=== PATIENT | male | born 1950 | race Caucasian/White ===

== ENCOUNTER 2017-10-20 02:38 | Inpatient (IN) | payer OTHER ==
[~2017-10-20] VITALS: Ht 185.4 cm; Wt 74.3 kg
[2017-10-20] MEDS ORDERED: ZIPRASIDONE 20 MG INJ IM ONE ×2 (03:16→03:30)
[2017-10-20 03:29] LABS: BASOPHILS # (AUTO) 0.06 x10^3/uL (0-0.1); BASOPHILS % (AUTO) 1 % (0-1); EOSINOPHILS # (AUTO) 0.09 x10^3/uL (0-0.4); EOSINOPHILS % (AUTO) 1 % (1-7); LYMPHOCYTES % (AUTO) 19 % (22-44); MD NO; MEAN CORPUSCULAR HEMOGLOBIN 30.4 pg (27.5-34.5); MEAN CORPUSCULAR HGB CONC 33.8 g/dL (33.2-36.2); MEAN CORPUSCULAR VOLUME 90.1 fL (81-97); MEAN PLATELET VOLUME 7.8 fL (7.4-10.4); MONOCYTES # (AUTO) 0.96 x10^3/uL (0.2-0.8); MONOCYTES % (AUTO) 8 % (2-9); NEUTROPHILS # (AUTO) 8.65 x10^3/uL (1.8-6.8); NEUTROPHILS % (AUTO) 72 % (42-75); PLATELET COUNT 404 x10^3/uL (130-400); RED BLOOD COUNT 4.49 x10^6/uL (4.38-5.82)
[2017-10-20 03:31] LABS: ALANINE AMINOTRANSFERASE 38 U/L (12-78); ALBUMIN 4.4 g/dL (3.4-5.0); ANION GAP 8 mmol/L (5-15); CALCIUM 9.3 mg/dL (8.5-10.1); CHLORIDE 108 mmol/L (98-107); CREATININE 1.12 mg/dL (0.7-1.3)
[2017-10-20 03:33] LABS: SALICYLATE LEVEL < 1.7 mg/dL (2.8-20.0)
[2017-10-20 03:36] LABS: ALKALINE PHOSPHATASE 76 U/L (45-117); TOTAL PROTEIN 8.8 g/dL (6.4-8.2); TROPONIN I 0.119 ng/mL (0.000-0.045)
[2017-10-20 03:38] LABS: ACETAMINOPHEN < 2 mcg/mL (10-30)
[2017-10-20] MEDS ORDERED: ASPIRIN 81 MG TABLET CHEW ONE (03:50)
[2017-10-20] MEDS ORDERED: ASPIRIN 81 MG TABLET CHEW PO ONE (04:00)
[2017-10-20 08:14] VITALS: BP 157/113
[2017-10-20 08:17] VITALS: BP 175/100
[2017-10-20] MEDS ORDERED: NITROGLYCERIN 0.4 MG BOTTLE (25 TABS) SL PRN (12:30)
[2017-10-20] MEDS ORDERED: morphine SULFATE 10 MG/ML, 1ML IVPush PRN (12:30)
[2017-10-20] MEDS ORDERED: HYDROcodone/APAP 5/325 TABLET PO PRN (12:30)
[2017-10-20] MEDS ORDERED: ACETAMINOPHEN 325 MG TABLET PO PRN (12:30)
[2017-10-20] MEDS ORDERED: ENALAPRILAT 1.25 MG/ML, 2ML IVPush PRN (12:30)
[2017-10-20] MEDS ORDERED: ENOXAPARIN 40 MG/0.4 ML SQ SCH (13:00)
[2017-10-20 13:05] LABS: FREE T4 (FREE THYROXINE) 1.22 ng/dL (0.76-1.46); THYROID STIMULATING HORMONE 1.03 mIU/L (0.358-3.740)
[2017-10-20] MEDS: LORazepam 2 MG/ML, 1ML IVPush PRN ×2 (13:06→20:43)
[2017-10-20] MEDS ORDERED: HEPARIN 5,000 UNITS/ML, 1ML IV ONE ×2 (13:30→14:30)
[2017-10-20] MEDS ORDERED: HEPARIN 25,000 UNITS/500ML PMX 500 ML IV PRN (13:30)
[2017-10-20] MEDS ORDERED: HEPARIN 5,000 UNITS/ML, 1ML IV PRN (13:30)
[2017-10-20 14:20] VITALS: BP 147/86
[2017-10-20] MEDS ORDERED: ARIPIPRAZOLE 10 MG TABLET PO ONE (15:00)
[2017-10-20] MEDS: SODIUM CHLORIDE 0.9% 1,000 ML IV SCH ×2 (15:13→22:50)
[2017-10-20 18:10] LABS: MICROSCOPIC NOT IND
[2017-10-20 18:20] LABS: CULTURE INDICATED? NO
[2017-10-20 18:22] LABS: AMPHETAMINE SCREEN, URINE Negative (Negative); BARBITURATE SCREEN, URINE Negative (Negative); BENZODIAZEPINE SCREEN, URINE Negative (Negative); CANNABINOID SCREEN, URINE Negative (Negative); COCAINE SCREEN, URINE Negative (Negative); METHADONE SCREEN, URINE Negative (Negative); OPIATE SCREEN, URINE Negative (Negative)
[2017-10-20] MEDS: METOPROLOL TARTRATE 25 MG TABLET PO SCH (18:27)
[2017-10-20 20:00] VITALS: BP 133/84
[2017-10-20] MEDS: ATORVASTATIN 40 MG TABLET PO SCH ×4 (20:18→20:56)
[2017-10-20] MEDS: LISINOPRIL 10 MG TABLET PO SCH ×3 (20:19→20:57)
[2017-10-20] MEDS ORDERED: SIMVASTATIN 40 MG TABLET PO SCH (21:00)
[2017-10-20] MEDS: HEPARIN 5,000 UNITS/ML, 1ML IV PRN (22:44)
[2017-10-21] VITALS (10 sets, daily range): BP systolic 69–138; BP diastolic 24–82
[2017-10-21] MEDS: LORazepam 2 MG/ML, 1ML IVPush PRN (03:59)
[2017-10-21] MEDS: HEPARIN 5,000 UNITS/ML, 1ML IV PRN ×2 (05:51→19:27)
[2017-10-21] MEDS: METOPROLOL TARTRATE 25 MG TABLET PO SCH (05:53)
[2017-10-21] MEDS: ASPIRIN 81 MG TABLET EC PO SCH (05:56)
[2017-10-21 06:04] LABS: CHOL/HDL RATIO 4.7; LDL/HDL RATIO 3.2 (0.5-3.0)
[2017-10-21] MEDS: SODIUM CHLORIDE 0.9% 1,000 ML IV SCH ×3 (07:46→23:24)
[2017-10-21] MEDS ORDERED: ARIPIPRAZOLE 10 MG TABLET PO SCH (09:00)
[2017-10-21] MEDS ORDERED: ARIPIPRAZOLE 5 MG TABLET PO SCH (09:00)
[2017-10-21] MEDS: CARVEDILOL 3.125 MG TABLET PO SCH ×2 (10:00→18:00)
[2017-10-21] MEDS: HEPARIN 25,000 UNITS/500ML PMX 500 ML IV PRN (12:41)
[2017-10-21] MEDS: ARIPIPRAZOLE 5 MG TABLET PO SCH (21:00)
[2017-10-21] MEDS: LISINOPRIL 10 MG TABLET PO SCH (21:38)
[2017-10-21] MEDS: ATORVASTATIN 40 MG TABLET PO SCH (21:38)
[2017-10-22] MEDS: HEPARIN 5,000 UNITS/ML, 1ML IV PRN (02:00)
[2017-10-22 03:22] VITALS: BP 132/88
[2017-10-22] MEDS: CARVEDILOL 3.125 MG TABLET PO SCH (05:41)
[2017-10-22] MEDS: ASPIRIN 81 MG TABLET EC PO SCH (05:41)
[2017-10-22 06:42] VITALS: BP 121/80
[2017-10-22] MEDS: HEPARIN 25,000 UNITS/500ML PMX 500 ML IV PRN (08:09)
[2017-10-22] MEDS: SODIUM CHLORIDE 0.9% 1,000 ML IV SCH (08:10)
[2017-10-22] MEDS: LISINOPRIL 10 MG TABLET PO SCH ×2 (08:10→21:00)
[2017-10-22] MEDS: CLOPIDOGREL 75 MG TABLET PO SCH (13:04)
[2017-10-22 14:21] VITALS: BP 130/87
[2017-10-22] MEDS: CARVEDILOL 6.25 MG TABLET PO SCH (16:52)
[2017-10-22 18:47] VITALS: BP 132/88
[2017-10-22] MEDS: PRAVASTATIN 40 MG TABLET PO SCH (21:00)
[2017-10-22] MEDS: ARIPIPRAZOLE 5 MG TABLET PO SCH (21:00)
[2017-10-23 01:04] VITALS: BP 146/82
[2017-10-23 05:22] LABS: ANION GAP 9 mmol/L (5-15); CALCIUM 8.8 mg/dL (8.5-10.1); CHLORIDE 111 mmol/L (98-107); CREATININE 0.82 mg/dL (0.7-1.3)
[2017-10-23] MEDS: ASPIRIN 81 MG TABLET EC PO SCH (05:40)
[2017-10-23] MEDS: CARVEDILOL 6.25 MG TABLET PO SCH ×2 (05:40→17:55)
[2017-10-23 07:18] VITALS: BP 132/86
[2017-10-23] MEDS: CLOPIDOGREL 75 MG TABLET PO SCH (09:22)
[2017-10-23] MEDS: LISINOPRIL 10 MG TABLET PO SCH ×2 (09:22→20:24)
[2017-10-23 13:18] VITALS: BP 153/79
[2017-10-23 18:38] VITALS: BP 133/83
[2017-10-23] MEDS: PRAVASTATIN 40 MG TABLET PO SCH (20:24)
[2017-10-23] MEDS: ARIPIPRAZOLE 5 MG TABLET PO SCH (20:25)
[2017-10-24 00:57] VITALS: BP 150/98
[2017-10-24] MEDS: ASPIRIN 81 MG TABLET EC PO SCH (06:36)
[2017-10-24] MEDS: CARVEDILOL 6.25 MG TABLET PO SCH ×2 (06:36→18:01)
[2017-10-24 07:52] VITALS: BP 138/90
[2017-10-24] MEDS: CLOPIDOGREL 75 MG TABLET PO SCH (08:15)
[2017-10-24] MEDS: LISINOPRIL 10 MG TABLET PO SCH ×2 (08:16→20:16)
[2017-10-24] MEDS: LORazepam 2 MG/ML, 1ML IVPush PRN (15:07)
[2017-10-24 16:04] VITALS: BP 160/99
[2017-10-24] MEDS: PRAVASTATIN 40 MG TABLET PO SCH (20:16)
[2017-10-24] MEDS: ARIPIPRAZOLE 5 MG TABLET PO SCH (20:18)
[2017-10-24 20:24] VITALS: BP 135/74
[2017-10-25 01:12] VITALS: BP 141/82
[2017-10-25] MEDS: ASPIRIN 81 MG TABLET EC PO SCH (04:32)
[2017-10-25] MEDS: CARVEDILOL 6.25 MG TABLET PO SCH ×2 (04:33→17:32)
[2017-10-25 04:35] VITALS: BP 147/99
[2017-10-25 07:43] VITALS: BP 158/97
[2017-10-25] MEDS: CLOPIDOGREL 75 MG TABLET PO SCH (08:36)
[2017-10-25] MEDS: LISINOPRIL 10 MG TABLET PO SCH ×2 (08:36→19:57)
[2017-10-25] MEDS: LORazepam 2 MG/ML, 1ML IVPush PRN (12:55)
[2017-10-25 14:49] VITALS: BP 156/100
[2017-10-25] MEDS ORDERED: ARIPIPRAZOLE 5 MG TABLET PO ONE (15:30)
[2017-10-25 19:00] VITALS: BP 136/85
[2017-10-25] MEDS: PRAVASTATIN 40 MG TABLET PO SCH (19:58)
[2017-10-25] MEDS: ARIPIPRAZOLE 5 MG TABLET PO SCH (20:01)
[2017-10-26 00:34] VITALS: BP 136/84
[2017-10-26] MEDS: CARVEDILOL 6.25 MG TABLET PO SCH ×2 (06:27→18:45)
[2017-10-26] MEDS: ASPIRIN 81 MG TABLET EC PO SCH (06:30)
[2017-10-26 07:39] VITALS: BP 131/81
[2017-10-26] MEDS: LISINOPRIL 10 MG TABLET PO SCH ×2 (08:55→20:41)
[2017-10-26] MEDS: CLOPIDOGREL 75 MG TABLET PO SCH (08:57)
[2017-10-26 13:49] VITALS: BP 166/94
[2017-10-26 20:12] VITALS: BP 150/91
[2017-10-26] MEDS: PRAVASTATIN 40 MG TABLET PO SCH (20:41)
[2017-10-26] MEDS: ARIPIPRAZOLE 10 MG TABLET PO SCH (20:41)
[2017-10-26] MEDS ORDERED: ARIPIPRAZOLE 5 MG TABLET PO SCH (21:00)
[2017-10-27 01:34] VITALS: BP 148/97
[2017-10-27] MEDS: ASPIRIN 81 MG TABLET EC PO SCH (05:17)
[2017-10-27] MEDS: CARVEDILOL 6.25 MG TABLET PO SCH ×2 (05:17→21:11)
[2017-10-27 07:37] VITALS: BP 157/94
[2017-10-27] MEDS: LISINOPRIL 10 MG TABLET PO SCH ×2 (09:11→21:11)
[2017-10-27] MEDS: CLOPIDOGREL 75 MG TABLET PO SCH (09:11)
[2017-10-27 13:30] VITALS: BP_SYST 116; BP_SYST 122; BP_DIAS 66; BP_DIAS 84
[2017-10-27 19:29] VITALS: BP 143/89
[2017-10-27] MEDS: PRAVASTATIN 40 MG TABLET PO SCH (21:11)
[2017-10-27] MEDS: ARIPIPRAZOLE 10 MG TABLET PO SCH (21:12)
[2017-10-28 03:21] VITALS: BP 129/79
[2017-10-28] MEDS: ASPIRIN 81 MG TABLET EC PO SCH (05:37)
[2017-10-28] MEDS: CARVEDILOL 6.25 MG TABLET PO SCH ×2 (05:37→19:35)
[2017-10-28 09:06] VITALS: BP 113/71
[2017-10-28] MEDS: LISINOPRIL 10 MG TABLET PO SCH ×2 (09:53→21:55)
[2017-10-28] MEDS: CLOPIDOGREL 75 MG TABLET PO SCH (09:53)
[2017-10-28 12:46] VITALS: BP_SYST 112
[2017-10-28 19:14] VITALS: BP 128/86
[2017-10-28 19:38] VITALS: BP 136/72
[2017-10-28] MEDS: PRAVASTATIN 40 MG TABLET PO SCH (21:54)
[2017-10-28] MEDS: ARIPIPRAZOLE 10 MG TABLET PO SCH (21:56)
[2017-10-29] MEDS ORDERED: CARVEDILOL 12.5 MG TABLET ONE ×2 (07:44→08:14)
[2017-10-29 08:04] VITALS: BP 126/92
[2017-10-29] MEDS: LISINOPRIL 10 MG TABLET PO SCH ×2 (08:24→20:22)
[2017-10-29] MEDS: CLOPIDOGREL 75 MG TABLET PO SCH (08:24)
[2017-10-29] MEDS: ASPIRIN 81 MG TABLET EC PO SCH (08:29)
[2017-10-29] MEDS: CARVEDILOL 6.25 MG TABLET PO SCH ×2 (08:31→18:30)
[2017-10-29 19:49] VITALS: BP 101/65
[2017-10-29] MEDS: PRAVASTATIN 40 MG TABLET PO SCH (20:22)
[2017-10-29] MEDS: ARIPIPRAZOLE 10 MG TABLET PO SCH (21:00)
[2017-10-30 07:45] VITALS: BP 120/79
[2017-10-30] MEDS: LISINOPRIL 10 MG TABLET PO SCH ×2 (08:18→20:21)
[2017-10-30] MEDS: CARVEDILOL 6.25 MG TABLET PO SCH ×2 (08:18→20:21)
[2017-10-30] MEDS: ASPIRIN 81 MG TABLET EC PO SCH (08:18)
[2017-10-30] MEDS: CLOPIDOGREL 75 MG TABLET PO SCH (08:18)
[2017-10-30 19:24] VITALS: BP 125/83
[2017-10-30] MEDS: PRAVASTATIN 40 MG TABLET PO SCH (20:20)
[2017-10-30] MEDS: ARIPIPRAZOLE 10 MG TABLET PO SCH (21:00)
[2017-10-31] MEDS: CLOPIDOGREL 75 MG TABLET PO SCH (07:59)
[2017-10-31] MEDS: LISINOPRIL 10 MG TABLET PO SCH ×2 (08:00→20:24)
[2017-10-31] MEDS: CARVEDILOL 6.25 MG TABLET PO SCH ×2 (08:00→20:24)
[2017-10-31 08:11] VITALS: BP 128/78
[2017-10-31] MEDS: ASPIRIN 81 MG TABLET EC PO SCH (08:14)
[2017-10-31 19:14] VITALS: BP 115/83
[2017-10-31] MEDS: PRAVASTATIN 40 MG TABLET PO SCH (20:24)
[2017-10-31] MEDS: ARIPIPRAZOLE 10 MG TABLET PO SCH (21:00)
[2017-11-01 07:59] VITALS: BP 120/79
[2017-11-01] MEDS: CARVEDILOL 6.25 MG TABLET PO SCH ×2 (08:45→20:22)
[2017-11-01] MEDS: LISINOPRIL 10 MG TABLET PO SCH ×2 (09:00→20:22)
[2017-11-01] MEDS: CLOPIDOGREL 75 MG TABLET PO SCH (09:00)
[2017-11-01] MEDS: ASPIRIN 81 MG TABLET EC PO SCH (09:00)
[2017-11-01 19:40] VITALS: BP 148/89
[2017-11-01] MEDS: PRAVASTATIN 40 MG TABLET PO SCH (20:22)
[2017-11-01] MEDS: ARIPIPRAZOLE 10 MG TABLET PO SCH (20:23)
[2017-11-02] MEDS: LISINOPRIL 10 MG TABLET PO SCH ×2 (08:20→21:00)
[2017-11-02] MEDS: CLOPIDOGREL 75 MG TABLET PO SCH (08:20)
[2017-11-02] MEDS: CARVEDILOL 6.25 MG TABLET PO SCH ×2 (08:20→21:01)
[2017-11-02 08:26] VITALS: BP 121/79
[2017-11-02] MEDS: ASPIRIN 81 MG TABLET EC PO SCH (08:35)
[2017-11-02 19:30] VITALS: BP 130/91
[2017-11-02] MEDS: PRAVASTATIN 40 MG TABLET PO SCH (21:00)
[2017-11-02] MEDS: ARIPIPRAZOLE 10 MG TABLET PO SCH (21:00)
[2017-11-03 07:53] VITALS: BP 139/78
[2017-11-03] MEDS: ASPIRIN 81 MG TABLET EC PO SCH (08:06)
[2017-11-03] MEDS: CARVEDILOL 6.25 MG TABLET PO SCH ×2 (08:06→20:37)
[2017-11-03] MEDS: LISINOPRIL 10 MG TABLET PO SCH ×2 (08:06→20:37)
[2017-11-03] MEDS: CLOPIDOGREL 75 MG TABLET PO SCH (08:06)
[2017-11-03 19:30] VITALS: BP 151/106
[2017-11-03] MEDS: PRAVASTATIN 40 MG TABLET PO SCH (20:37)
[2017-11-03] MEDS: ARIPIPRAZOLE 10 MG TABLET PO SCH (21:00)
[2017-11-03 22:21] VITALS: BP 123/87
[2017-11-04 08:56] VITALS: BP 106/74
[2017-11-04] MEDS: LISINOPRIL 10 MG TABLET PO SCH (09:33)
[2017-11-04] MEDS: CLOPIDOGREL 75 MG TABLET PO SCH (09:34)
[2017-11-04] MEDS: CARVEDILOL 6.25 MG TABLET PO SCH (09:34)
[2017-11-04] MEDS: ASPIRIN 81 MG TABLET EC PO SCH (09:34)
== END 2017-11-04 13:04 | DRG 281 ==
LOC: ED 04:00 → EDIP 05:18 → 5SO 08:29 → 3NE 10-25 17:47 → 2N 10-28 12:20
PROVIDERS: ADMIT Family Medicine; ATTEND Family Medicine
DX: I21.4 Non-ST elevation (NSTEMI) myocardial infarction (principal); F23 Brief psychotic disorder; E44.0 Moderate protein-calorie malnutrition; I42.9 Cardiomyopathy, unspecified; F22 Delusional disorders; D47.3 Essential (hemorrhagic) thrombocythemia; I08.0 Rheumatic disorders of both mitral and aortic valves; D72.829 Elevated white blood cell count, unspecified; F32.9 Major depressive disorder, single episode, unspecified; H26.9 Unspecified cataract; I10 Essential (primary) hypertension; Z79.82 Long term (current) use of aspirin; Z68.21 Body mass index [BMI] 21.0-21.9, adult; Z82.49 Family history of ischemic heart disease and other diseases of the circulatory system; Z86.73 Personal history of transient ischemic attack (TIA), and cerebral infarction without residual deficits; Z87.891 Personal history of nicotine dependence; Z90.5 Acquired absence of kidney; Z90.79 Acquired absence of other genital organ(s)
CPT/HCPCS: 36415; 70450; 71045; 80048; 80053; 80061; 80307; 80329; 81003; 82607; 83735; 84439; 84443; 84484; 85025; 85520; 93005; 93306; 96374; 99285; 99291; G0378; J1644; J3486; G0480; J2060; J7030